=== PATIENT | female | born 1985 | race Caucasian/White ===

== ENCOUNTER 2017-02-17 08:36 | Emergency (ER) | payer OTHER ==
[~2017-02-17] VITALS: Ht 167.6 cm; Wt 73.0 kg
[~2017-02-17 08:36] MED LIST: CHILD ASPIRIN81 M1 PO; ENDOCET 5-3251 EACH PO; IBUPROFEN800 MG PO; PRENATAL TABLE1 EAC3 PO
[2017-02-17] MEDS ORDERED: VALIUM5 MG PO (14:09)
[2017-02-17] MEDS ORDERED: PERCOCET 5/31 TABLET PO (14:09)
[2017-02-17 14:30] VITALS: BP 113/65
== END 2017-02-17 14:33 | disposition home or self-care (01) ==
LOC: EME 08:36
DX: S39.012A Strain of muscle, fascia and tendon of lower back, initial encounter (principal); X50.0XXA Overexertion from strenuous movement or load, initial encounter
CPT/HCPCS: 72100; 99281; 99285; J1885; J2270

== ENCOUNTER 2017-04-15 08:46 | Day surgery (SDC) | payer OTHER ==
[~2017-04-15] VITALS: Ht 167.6 cm; Wt 68.1 kg
[~2017-04-15 08:46] MED LIST changes: +PERCOCET 5/31 TABLET PO; +VALIUM5 MG PO
[2017-04-15 09:14] VITALS: BP 123/60
[2017-04-15] MEDS ORDERED: IBUPROFEN800 MG PO (11:57)
[2017-04-15] MEDS ORDERED: HYDROCODON-ACE1 EAC7 PO (11:57)
[2017-04-15 12:20] VITALS: BP 105/78
[2017-04-15 13:30] VITALS: BP 115/73
== END 2017-04-15 13:50 | disposition home or self-care (01) ==
LOC: SDC 08:46
DX: N94.6 Dysmenorrhea, unspecified (principal); N87.1 Moderate cervical dysplasia; N92.0 Excessive and frequent menstruation with regular cycle
CPT/HCPCS: 88305; 88342 TC; J1100; J1885; J2250; J2405; J2765; J3010